=== PATIENT | female | born 1995 | race Hispanic/Latino ===

== ENCOUNTER 2017-03-24 14:14 | Emergency (ER) | payer OTHER ==
[2017-03-24 14:17] VITALS: BMI 40.5
[2017-03-24 14:22] VITALS: RESP 18; TEMP 98.3
[2017-03-24 15:25] VITALS: BP 118/80; PULSE 70; O2SAT 98
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
== END 2017-03-24 15:28 | disposition home or self-care (01) ==
LOC: ED 14:14
DX: S05.01XA Injury of conjunctiva and corneal abrasion without foreign body, right eye, initial encounter (principal); W50.4XXA Accidental scratch by another person, initial encounter; Y92.009 Unspecified place in unspecified non-institutional (private) residence as the place of occurrence of the external cause